=== PATIENT | male | born 1960 | race African-American/Black ===

== ENCOUNTER 2019-12-11 10:40 | Emergency (ER) | payer OTHER ==
[2019-12-11 11:09] LABS: #Eosinphils 0.2 thou/uL (0.0-0.7); #Lymphocytes 1.6 thou/uL (1.20-3.40); #Monocytes 0.3 thou/uL (0.11-0.59); #Neutrophils 1.6 thou/uL (1.40-6.50); %Basophils 1.1 % (0.0-1.0); %Eosinophils 4.7 % (0.0-10.0); %Lymphocytes 42.2 % (21.0-51.0); %Monocytes 8.5 % (0.0-10.0); %Neutrophils 43.4 % (42.0-75.0); Hemoglobin 13.2 g/dL (14.0-18.0); Mean Corpuscular HGB CONC 31.8 g/dL (32.0-36.0); Mean Corpuscular Hemoglobin 28.9 pg (27.0-31.0); Mean Corpuscular Volume 90.7 fL (78.0-98.0); Mean Platelet Volume 7.9 fL (7.4-10.4); Platelet Count 264 thou/uL (130-400); RBC Distribution Width 12.8 % (11.5-14.5); Red Blood Cell (RBC) Count 4.59 mill/uL (4.70-6.10); White Blood Cell (WBC) Count 3.7 thou/uL (4.8-10.8)
[2019-12-11 11:37] LABS: ALT (SGPT) 19 U/L (8-55); AST (SGOT) 24 U/L (5-34); Albumin 4.3 g/dL (3.4-4.8); Alkaline Phosphatase 69 U/L (40-110); Anion Gap 11 mmol/L (10-20); BUN (Urea Nitrogen) 12 mg/dL (8.4-25.7); Bilirubin, Total 0.3 mg/dL (0.2-1.2); Calc. Creatinine Clearance 0 mL/min (70-130); Calcium 8.9 mg/dL (7.8-10.44); Carbon Dioxide 25 mmol/L (23-31); Chloride 106 mmol/L (98-107); Estimated GFR-MDRD 65; Globulin 4.3 g/dL (2.4-3.5); Glucose 92 mg/dL (80-115); Lipase 39 U/L (8-78); Potassium 3.8 mmol/L (3.5-5.1); Protein, Total 8.6 g/dL (5.8-8.1); Sodium 138 mmol/L (136-145)
--- NOTE | 2019-12-11 11:43 | RAD ---
PORTABLE CHEST 1 VIEW: Date: 12/11/2019 Time: 1127 hours HISTORY: Numbness in left side of face and arms, chest pain. FINDINGS: The heart size is normal. The lungs are expanded without lobar consolidation, pneumothoraces, or pleu ral effusions. IMPRESSION: No radiographic evidence of acute cardiopulmonary process. POS: [facility]
[2019-12-11] MEDS ORDERED: Aspirin Chewable 81 MG TAB ONE (11:47)
[2019-12-11] MEDS ORDERED: Nitroglycerin 0.4 MG TAB 1 EACH ONE (11:47)
--- NOTE | 2019-12-11 13:55 | CT ---
CTA Angio Chest W WO Con 12/11/2019 1:31 PM Indication: Chest Pain Technique: Multiple CTA images were obtained of the thorax with IV contrast. 3-D rendering: MIP deep nstructed images were created and reviewed. Comparison: No relevant prior studies available. Findings: Pulmonary arteries: No central or segmental pulmonary embolus is evident. Heart and Aorta: Normal appearing. Mediastinum:No pathologically enlarged lymph nodes are evident. There is a slight accentuation of t he right azygos vein. This is seen are right of midline on image 40. Series 2. Lungs:The lungs are clear. Pleural space: Clear. Upper Abdomen: No acute abnormality. Osseous Structures: No acute osseous abnormality. Soft tissues:There is bilateral male gynecomastia Other findings:None. Impression: No central or segmental pulmonary embolus.
[2019-12-11] MEDS ORDERED: Iopamidol-370 76% 500 ML 1 ML ONE (14:31)
== END 2019-12-11 16:05 | disposition home or self-care (01) ==
LOC: ERS 10:40
DX: R07.9 Chest pain, unspecified (principal); I10 Essential (primary) hypertension; E78.5 Hyperlipidemia, unspecified; F20.9 Schizophrenia, unspecified; Z79.82 Long term (current) use of aspirin; Z79.891 Long term (current) use of opiate analgesic; Z79.899 Other long term (current) drug therapy
CPT/HCPCS: 71045; 71275; 80053; 83690; 83880; 84484; 85025; 85379; 93005; Q9967

== ENCOUNTER 2020-02-03 16:08 | Emergency (ER) | payer OTHER ==
[2020-02-03 17:12] LABS: #Eosinphils 0.1 thou/uL (0.0-0.7); #Lymphocytes 1.7 thou/uL (1.20-3.40); #Monocytes 0.5 thou/uL (0.11-0.59); #Neutrophils 1.7 thou/uL (1.40-6.50); %Basophils 0.5 % (0.0-1.0); %Eosinophils 2.4 % (0.0-10.0); %Lymphocytes 42.7 % (21.0-51.0); %Monocytes 12.9 % (0.0-10.0); %Neutrophils 41.5 % (42.0-75.0); Hemoglobin 12.5 g/dL (14.0-18.0); Mean Corpuscular HGB CONC 33.3 g/dL (32.0-36.0); Mean Corpuscular Hemoglobin 30.7 pg (27.0-31.0); Mean Corpuscular Volume 92.3 fL (78.0-98.0); Mean Platelet Volume 8.3 fL (7.4-10.4); Platelet Count 255 thou/uL (130-400); RBC Distribution Width 12.6 % (11.5-14.5); Red Blood Cell (RBC) Count 4.06 mill/uL (4.70-6.10)
--- NOTE | 2020-02-03 17:31 | ULT ---
BILATERAL LOWER EXTREMITY VENOUS DOPPLER WITH SPECTRAL ANALYSIS AND COLOR FLOW EVALUATION: 02/04/20 HISTORY: Bilateral feet swelling and pain for two weeks. FINDINGS: Aquino scale, color flow, Doppler evaluation with spectral analysis of the bilateral lower extremity ve nous structures is performed with 2D imaging. The bilateral lower extremity common femoral, superfici al femoral, popliteal, posterior tibial and most proximal greater saphenous and profunda femoral vein s are imaged. Normal lumen compressibility, flow, and augmentation is visualized in the visualized deep venous stru ctures of the bilateral lower extremities. Minimal subcutaneous edema is seen in the distal left lower extremity. IMPRESSION: No evidence of a DVT involving the visualized deep venous structures bilateral lower extremities. POS: [facility]
[2020-02-03 17:38] LABS: ALT (SGPT) 24 U/L (8-55); AST (SGOT) 21 U/L (5-34); Albumin 4.2 g/dL (3.4-4.8); Alkaline Phosphatase 65 U/L (40-110); Anion Gap 13 mmol/L (10-20); BUN (Urea Nitrogen) 11 mg/dL (8.4-25.7); Bilirubin, Total 0.3 mg/dL (0.2-1.2); CK (CPK) 380 U/L (30-200); Calc. Creatinine Clearance 0 mL/min (70-130); Calcium 8.9 mg/dL (7.8-10.44); Carbon Dioxide 23 mmol/L (23-31); Chloride 107 mmol/L (98-107); Estimated GFR-MDRD 73; Globulin 3.6 g/dL (2.4-3.5); Glucose 85 mg/dL (80-115); Potassium 3.7 mmol/L (3.5-5.1); Protein, Total 7.8 g/dL (5.8-8.1); Sodium 139 mmol/L (136-145)
--- NOTE | 2020-02-04 15:02 | EKG ---
Test Reason : ER Blood Pressure : / mmHG Vent. Rate : 072 BPM Atrial Rate : 072 BPM P-R Int : 158 ms QRS Dur : 070 ms QT Int : 396 ms P-R-T Axes : 059 074 085 degrees QTc Int : 433 ms Normal sinus rhythm Normal ECG Confirmed by KOFI ARMANDO DO ([id number]), video effects editor KATIE ELIAS ([id number] on 02/04/2020 3:02:33 PM Referred By: Confirmed By:KOFI ARMANDO DO
== END 2020-02-03 18:42 ==
LOC: ERS 16:08 → EEVIPCON 16:08 → ERS 18:42
DX: M79.89 Other specified soft tissue disorders (principal); I10 Essential (primary) hypertension; F20.9 Schizophrenia, unspecified; E78.5 Hyperlipidemia, unspecified; Z79.82 Long term (current) use of aspirin; Z79.899 Other long term (current) drug therapy; Z79.891 Long term (current) use of opiate analgesic
CPT/HCPCS: 36415; 80053; 82550; 83880; 84484; 85025; 93005; 93970

== ENCOUNTER 2020-04-11 13:50 | Emergency (ER) | payer OTHER ==
[2020-04-11 14:32] LABS: #Lymphocytes 0.6 thou/uL (1.20-3.40); #Monocytes 0.4 thou/uL (0.11-0.59); #Neutrophils 2.3 thou/uL (1.40-6.50); %Basophils 1.1 % (0.0-1.0); %Eosinophils 0.1 % (0.0-10.0); %Lymphocytes 18.6 % (21.0-51.0); %Monocytes 10.8 % (0.0-10.0); %Neutrophils 69.4 % (42.0-75.0); Hemoglobin 13.5 g/dL (14.0-18.0); Mean Corpuscular HGB CONC 33.4 g/dL (32.0-36.0); Mean Corpuscular Hemoglobin 29.5 pg (27.0-31.0); Mean Corpuscular Volume 88.4 fL (78.0-98.0); Mean Platelet Volume 9.1 fL (7.4-10.4); Platelet Count 172 thou/uL (130-400); RBC Distribution Width 12.9 % (11.5-14.5); Red Blood Cell (RBC) Count 4.56 mill/uL (4.70-6.10); White Blood Cell (WBC) Count 3.3 thou/uL (4.8-10.8)
[2020-04-11] MEDS ORDERED: Acetaminophen 325 MG TAB ONE (14:45)
[2020-04-11 14:51] LABS: ALT (SGPT) 21 U/L (8-55); AST (SGOT) 34 U/L (5-34); Alkaline Phosphatase 51 U/L (40-110); Anion Gap 14 mmol/L (10-20); BUN (Urea Nitrogen) 14 mg/dL (8.4-25.7); Bilirubin, Total 0.3 mg/dL (0.2-1.2); Calc. Creatinine Clearance 0 mL/min (70-130); Calcium 8.2 mg/dL (7.8-10.44); Carbon Dioxide 19 mmol/L (23-31); Chloride 103 mmol/L (98-107); Estimated GFR-MDRD 65; Globulin 4.1 g/dL (2.4-3.5); Glucose 118 mg/dL (80-115); Potassium 3.9 mmol/L (3.5-5.1); Protein, Total 8.1 g/dL (5.8-8.1); Sodium 132 mmol/L (136-145)
[2020-04-11] MEDS ORDERED: Azithromycin 500 MG VIAL ONE (14:53)
--- NOTE | 2020-04-11 15:35 | RAD ---
PORTABLE CHEST: Date: 04-11-2020 Provided Clinical History: Cough FINDINGS: Comparison 12-11-2019. Cardiac and mediastinal silhouette is within normal limits. No focal consolidation, pleural fluid or pneumothorax apparent. IMPRESSION: No evidence for an acute cardiopulmonary process. POS: [facility]
[2020-04-11 15:50] LABS: Bacteria/HPF None Seen HPF (None Seen); Bilirubin Negative (Negative); Blood, Urine Trace (Negative); Clarity Clear (Clear); Glucose, Urine (Dipstick) Normal (Negative); Ketone, Urine Negative (Negative); Leukocyte Negative Leu/uL (Negative); Nitrite Negative (Negative); Protein, Urine (Dipstick) 50 mg/dL (Neg-Trace); Specific Gravity, Urine 1.028 (1.002-1.036); Squamous Epithelial 0-3 HPF (0-3); WBC/HPF 0-3 HPF (0-3)
[2020-04-11] MEDS ORDERED: Ibuprofen 800 MG TAB ONE (15:53)
[2020-04-12 12:22] LABS: SARS-CoV-2 MS2 Positive; SARS-CoV-2 N Gene Positive; SARS-CoV-2 S Gene Positive; SARS-CoV-2 orf1ab Positive
== END 2020-04-11 16:44 | disposition home or self-care (01) ==
LOC: ERS 13:50
DX: U07.1 COVID-19 (principal); E78.5 Hyperlipidemia, unspecified; I10 Essential (primary) hypertension; F20.9 Schizophrenia, unspecified; Z79.82 Long term (current) use of aspirin; Z79.899 Other long term (current) drug therapy
CPT/HCPCS: 71045; 80053; 81003; 81015; 83605; 85025; 87040; 87635; 96361; 96365; J0456; U0003